=== PATIENT | male | born 1965 | race Caucasian/White ===

== ENCOUNTER → 2019-10-30 08:32 | Outpatient (CLI) | payer MEDICARE, SELFPAY ==
[2019-10-30 08:09] VITALS: BMI 39.4
[2019-10-30 12:16] LABS: Absolute Lymphocyte Count 1.94 X10^3/uL (0.83-4.51); Absolute Neutrophil Count 3.5 X10^3/uL (2.0-7.7); Basophil# 0.05 X10^3/uL; Basophil% 0.7 % (0-1); Eosinophil# 0.24 X10^3/uL; Eosinophils% 3.5 % (0-5); Hematocrit 40.7 % (40-54); Hemoglobin 13.7 g/dL (13.0-16.5); Lymphocyte # 1.94 X10^3/ul (4.0); Lymphocyte % 28.4 % (19-41); Mean Corp Hgb Conc 33.7 g/dL (32-36); Mean Corpuscular Hgb 30.2 pg (27.0-32.0); Mean Corpuscular Volume 89.6 fL (80-94); Mean Platelet Vol. 11.2 fl (6.2-12.0); Monocyte# 1.08 X10^3/uL; Monocyte% 15.8 % (0-10); NRBC Flagged by Analyzer 0 % (0-5); Neutrophil # 3.48 X10^3/uL (2.7-7.7); Neutrophil % 51.2 % (47-70); Platelet Count 213 K/mm3 (150-450); RBC Distribution Width SD 39.1 fl (35.1-43.9); Red Blood Count 4.54 M/mm3 (4.6-6.2); White Blood Count 6.8 K/mm3 (4.4-11.0)
[2019-10-30 12:43] LABS: ALB/GLOB Ratio 1.1 RATIO (0.9-2.4); AST(SGOT) 28 U/L (15-37); Alanine Aminotransfer ALT/SGPT 62 U/L (16-61); Albumin, Serum 3.9 g/dL (3.2-5.0); Alkaline Phosphatase 62 U/L (45-117); Anion Gap 6 (5-15); BUN 12 mg/dL (7-18); BUN/Creat Ratio 13.7 RATIO (10-20); Chloride 103 mmol/L (98-107); Cholesterol 156 mg/dL (200); Creatinine, Serum 0.88 mg/dL (0.70-1.30); EST Glomerular Filtration Rate 97 mL/min (>60); Est Glom Filt Rate - Afr Amer 117 mL/min (>60); Globulin 3.4 g/dL (2.2-4.2); Glucose 161 mg/dL (74-106); High Density Lipoprotein 23 mg/dL; PSA,Total - Annual Screen 0.25 ng/mL (0.00-4.00); Potassium 4.1 mmol/L (3.5-5.1); Protein, Total 7.3 g/dL (6.4-8.2); Sodium Level 137 mmol/L (136-145); Triglycerides 149 mg/dL; Very Low Density Lipoprotein 30 mg/dL (5-40)
[2019-10-30 13:17] LABS: Microalbumin,Random Urine 8.9 mg/L (NO RANGE EST.); Microalbumin:Creatinine Ratio 6.6 mg/g CRE (<30 mg/g CRE)
== END ==
LOC: BIMLAB 08:35
PROVIDERS: PCP Internal Medicine; Referring Provider Internal Medicine; Visit Provider Internal Medicine
DX: I10 Essential (primary) hypertension (principal); E78.5 Hyperlipidemia, unspecified; E11.9 Type 2 diabetes mellitus without complications; N40.0 Benign prostatic hyperplasia without lower urinary tract symptoms
CPT/HCPCS: 36415; 80053; 80061; 82043; 82570; 84153; 85025; G0103

== ENCOUNTER → 2019-11-03 13:14 | Outpatient (CLI) | payer MEDICARE, SELFPAY ==
[2019-10-30 08:09] VITALS: BMI 39.4
--- NOTE | 2019-11-03 13:17 | EKG12_ITS ---
Test Reason : Blood Pressure : / mmHG Vent. Rate : 068 BPM Atrial Rate : 068 BPM P-R Int : 154 ms QRS Dur : 096 ms QT Int : 382 ms P-R-T Axes : 056 065 048 degrees QTc Int : 406 ms Normal sinus rhythm Normal ECG Confirmed by NORIS QUINTANILLA ([id number]), film editor supervisor ROBBIE ESCALERA ([id number]) on 11/05/2019 9:02:21 AM Referred By: Maida Padilla Confirmed By:NORIS QUINTANILLA
== END ==
LOC: CVS 13:17
PROVIDERS: PCP Internal Medicine; Referring Provider Internal Medicine; Visit Provider Internal Medicine
DX: R07.9 Chest pain, unspecified (principal)
CPT/HCPCS: 93005

== ENCOUNTER 2020-01-26 10:34 | Day surgery (SDC) | payer MEDICARE, SELFPAY ==
[2020-01-01 13:08] VITALS: BMI 39.3
[2020-01-19 13:51] VITALS: BMI 39.4
[2020-01-26] VITALS (7 sets, daily range): BP systolic 106–145; BP diastolic 69–88; PULSE 71–98; RESP 16–18; TEMP 36.3–37.1; O2SAT 94–99; BMI 39.2
--- NOTE | 2020-01-26 05:47 | HP_ITS ---
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 Is patient in pain?: No Allergies No Known Allergies Allergy (Verified 01/19/20 13:32) Medications hydrochlorothiazide 25 mg tablet 25 mg PO DAILY #90 tab 10/30/19 [Rx Confirmed 01/19/20] lisinopril 40 mg tablet 40 mg PO DAILY #90 tab 10/30/19 [Rx Confirmed 01/19/20] glipizide 10 mg tablet 10 mg PO BID 90 Days #180 tab 11/20/19 [Rx Confirmed 01/19/20] dulaglutide 0.75 mg/0.5 mL subcutaneous pen injector 0.75 mg SC QWEEK 90 Days #6.5 ml 12/30/19 [Rx Confirmed 01/19/20] metronidazole 500 mg tablet 500 mg PO Q8H 5 Days #15 tab 01/13/20 [Rx Confirmed 01/19/20] polyethylene glycol 3350 17 gram/dose oral powder 17 g PO DAILY PRN #850 g 01/13/20 [Rx Confirmed 01/19/20] Subjective Details: Patient returns for a follow-up appointment for hemorrhoids. Patient has 1 more day of Flagyl. He notes the pain/discomfort has completely resolved. Patient has continued to use Tucks and rectal cream also. Patient is having normal, soft bowel movements. Objective Details: Anus- external hemorrhoids, non-swollen, non-ulcerated, non-tender. Assessment & Plan Problems 1. Hemorrhoids K64.9 2. Umbilical hernia K42.9 Plan - Hemorrhoids resolved - Patient was scheduled for a hernia surgery and had to cancel due to inflamed hemorrhoids - Patient may now proceed with hernia surgery - Complete Flagyl. Continue Tucks pads and rectal cream. - Continue Miralax - Discussed with patient that hernia surgery will constipate him and he will need to continue to Miralax. 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 Coding Level of Care Code Off vis,est,level 2 Diagnoses Hemorrhoids K64.9 Umbilical hernia K42.9
[2020-01-26] MEDS: Lactated Ringers 1,000 ML 100 ML IV (11:05)
--- NOTE | 2020-01-26 11:24 | PCM.HP.BLA ---
Problem List (1) Umbilical hernia Status: Acute Qualifiers: Obstruction and gangrene presence: without obstruction or gangrene Qualified Code(s): K42.9 - Umbilical hernia without obstruction or gangrene History and Physical Date of Admission: 01/26/20 Intake Vital Signs 01/01/20 Height 6 ft 01/01/20 Weight: 290 lb 01/01/20 BP 144/84 H 01/01/20 Blood Pressure Location Rt brachial 01/01/20 Position Sitting 01/01/20 Respiration 18 01/01/20 Pulse 87 01/01/20 Pulse Source Monitor 01/01/20 Temp 97.4 F L 01/01/20 Temp Source Temporal 01/01/20 Pulse Oximetry (%) 95 01/01/20 Oxygen Delivery Method room air Intake Visit Reasons: Umbilical Hernia Chief Complaint: umbilical hernia Pre Wave Assembler Required: No Accompanied by: Is patient in pain?: Yes Allergies No Known Allergies Allergy (Verified 01/01/20 13:10) Medications hydrochlorothiazide 25 mg tablet 25 mg PO DAILY #90 tab 10/30/19 [Rx Confirmed 01/01/20] lisinopril 40 mg tablet 40 mg PO DAILY #90 tab 10/30/19 [Rx Confirmed 01/01/20] glipizide 10 mg tablet 10 mg PO BID 90 Days #180 tab 11/20/19 [Rx Confirmed 01/01/20] blood sugar diagnostic See Rx Instructions .ROUTE .MEDSUPPLY #100 ea 12/29/19 [Rx Confirmed 01/01/20] blood-glucose meter See Rx Instructions .ROUTE .MEDSUPPLY #1 ea 12/29/19 [Rx Confirmed 01/01/20] citalopram 20 mg tablet 20 mg PO DAILY #90 tab 12/29/19 [Rx Confirmed 01/01/20] dulaglutide 0.75 mg/0.5 mL subcutaneous pen injector 0.75 mg SC QWEEK 90 Days #6.5 ml 12/30/19 [Rx Confirmed 01/01/20] [facility] Medical History (Updated 01/01/20 @ 13:08 by Haylie Lewis) Chronic headaches (Chronic) Vision problems (Acute) Hyperlipemia (Chronic) Hypertension (Chronic) Diabetes (Chronic) Back problem (Acute) Bone fracture (Acute) Umbilical hernia (Acute) Surgical History History of surgery on right wrist (Acute) history of right ankle fusion (Acute) Family History Other No pertinent family history Social History (Updated 01/01/20 @ 18:[address] Rajesh Mary MD) Smoking Status: Never smoker alcohol intake: never substance use type: does not use what type of physical activity do you participate in: walking, bicycling frequency: daily HPI HPI HPI: JAIME AMOR is a 54 M who presents to the office today for HPI HPI HPI: JAIME AMOR is a 54 M who presents to the office today for Umbilical hernia. The patient reports he has had this umbilical hernia for almost a year but for the last few months it has been growing and hurting worse especially when bending over. He is not having any nausea or vomiting or pain extending or radiating anywhere. He has no fevers or chills. No cough. ROS General General: No weight change, appetite, fatigue, colon cancer, breast cancer or weakness HEENT HEENT: No difficulty swallowing, eye injury, eye surgery, swollen glands or hoarseness Endo Endocrine: Yes diabetes mellitus; no thyroid disease, thyroid cancer, Hair loss, heat intolerance or cold intolerance Skin Skin: No rash or changing moles Breast Breast: No left breast lump, right breast lump, nipple discharge, breast pain, abnormal mammogram, abnormal US or breast enlargement Musc Musculoskeletal: Yes back problems and arthritis; no rheumatoid arthritis, gout or joint pain Cardio Cardiovascular: Yes high blood pressure; no murmur, pacemaker, heart disease, atrial fibrillation, heart attack, heart stent, palpitations, shortness of breat with exertion or chest pain Psych Psychiatric: Yes depression and anxiety; no hearing voices Resp Respiratory: No shortness of breath, No sleep apnea, No cough, No COPD, No asthma, No emphysema, No wheezing Gastro Gastrointestinal: Yes abdominal pain, No nausea or vomiting, No diarrhea, No constipation, No blood in stool, No acid reflux, No hemorrhoids, No ulcers, No gallbladder problem, No black,tarry stools Donald Hematologic: No blood thinners, No blood disorders, No bleeding, No anemia, No blood clots Neuro Neurologic: No system reviewed and no additional complaints, except as docu, No as per HPI, No abnormal walking, No abnormal hearing, No abnormal movements, No abnormal speech, No behavioral changes, No burning sensations, No confusion, No seizure-like activity, No unsteadiness, No dizziness, No localized weakness, No frequent falls, No headache(s), No lack of coordination, No loss of vision, No memory loss, No numbness, No other visual disturbances, No radiating pain, No restless legs, No sensory deficit, No fainting, No tingling, No tremor(s), No weakness, No other Exam Const General: cooperative Orientation: alert, oriented x3 HENMT Head: normal to inspection Ears: hearing grossly normal bilaterally Eyes General: appearance normal, both eyes and all related structures Visual Cramer: normal visual cramer by confrontation Neck Neck: normal visual inspection Chest Chest palpation & inspection: normal inspection of the chest Breast Palpation: No nipple discharge Resp Effort & Inspection: normal respiratory effort Auscultation: clear to auscultation bilaterally Cardio Rate: regular rate Rhythm: regular rhythm Heart Sounds: no murmurs GI Inspection: non-distended Palpation: soft, hernia umbilical, nontender Musc Cervical Spine: normal cervical lordosis, cervical ROM normal Skin General: no rashes or lesions noted Neuro General: alert, oriented x3 Cranial Nerves: CN's II-XI intact bilaterally Cognition: normal cognition Extrem General: normal to inspection, full ROM Psych Appearance: grossly normal Affect: normal affect Assessment & Plan Problems 1. Umbilical hernia without obstruction and without gangrene K42.9 Plan The patient has an umbilical hernia. It appears soft and partially reducible. I discussed hernia repair with the patient. I discussed repairing the hernia in an open fashion anteriorly with mesh. I discussed the risks of the surgery including with allergy to bleeding, infection, injury to underlying organs. I explained mesh placement and that it would decrease the risk of recurrence. The patient understands all the risks and is well to proceed with umbilical hernia repair with mesh. We discussed the current risks associated with COVID-19. While it is understood that there is a community spread of COVID-19, the risk of elmira COVID-19 while at [facility] ([facility]) is very low; however, the risk cannot be completely mitigated because of the community spread of the disease. We discussed in detail the risk of exposure to and/or potential harm posed by the COVID-19 virus with having a surgery/procedure at this time versus the risk of delaying the surgery/procedure. It is not possible to know either the risk of delaying the surgery or procedure or chance of getting an infection with perfect accuracy, but a joint decision was made to proceed at this time with the scheduled surgery/procedure as indicated on the consent form. Patient was notified that we will need to comply with any screening or testing [facility] wishes to perform or that surgery may be delayed for any positive results. Rajesh Mary MD Pager: [facility] [address] [place] [address] Office: . The patient had his first surgery canceled due to severe hemorrhoidal pain. The hemorrhoids have resolved the patient is here for umbilical hernia repair with mesh.
[2020-01-26 11:36] LABS: Bedside Glucose 120 mg/dL (70-110)
[2020-01-26] MEDS: Cefazolin 2 GM in 0.9% Normal Saline 100 ML IV (11:42)
[2020-01-26] MEDS: Bupiv/Epi 0.25% 30 ML Vial (12:00)
--- NOTE | 2020-01-26 12:43 | PCM.OPRPT ---
Problem List (1) Umbilical hernia Status: Acute Qualifiers: Obstruction and gangrene presence: without obstruction or gangrene Qualified Code(s): K42.9 - Umbilical hernia without obstruction or gangrene Report of Operation Date of Procedure: 01/26/20 Pre-Operative Diagnosis: Umbilical hernia Post-Operative Diagnosis: Same Surgery/Procedure Performed:: Umbilical hernia repair with mesh Description of Procedure: Patient was brought back the operating room and general anesthesia was induced. The abdomen was prepped and draped in usual sterile fashion. Next a curvilinear incision was marked superior to umbilicus and anesthetized. A scalpel was then used to make an incision and deepened to the hernia sac. The hernia sac was dissected free from the umbilical stalk and the umbilical stalk was retracted. Once the hernia sac was circumferentially dissected free it was reduced and a preperitoneal pocket was made. Next a small Ventralex ST mesh was placed into the preperitoneal space and sutured to the fascia using PDS sutures. The area was irrigated and suctioned dry and the fascia was closed in a transverse fashion using interrupted 0 PDS sutures. The umbilical stalk was then tacked to the fascia using 3-0 Vicryl suture. The skin was reapproximated using interrupted 3-0 Vicryl sutures in a deep dermal fashion and then a running 4-0 Monocryl suture. Glue was then applied and a dressing was applied. Patient tolerated procedure well and was brought to PACU in stable condition. Grafts/Implants Used: Small ventralex ST mesh - Admit VTE Documentation VTE Mechan Device Prophylaxis: SCD's
[2020-01-26 12:51] LABS: Bedside Glucose 97 mg/dL (70-110)
--- NOTE | 2020-01-26 12:52 | PCM.DC.HER ---
Discharge Diet: Light diet - advance as tolerated Discharge Activity: Return to Normal Activity, May Not Drive - for 2-3 days or while taking narcotic pain meds., May Shower - with the bandage in place 1-2 days after surgery. Lifting Restrictions: 20 pounds for 6 weeks. Additional Activity Instructions:: Climbing stairs is fine, walking is encouraged. Sitting in bed may be uncomfortable. Sitting up using your lateral muscles (sitting up sideways) is usually more comfortable. Do not drive, work heavy equipment of sign legal documents for 24 hours. Pain medications may cause nausea, you should typically eat light foods as you take your pain medications. Pain medications may also cause constipation. If you have difficulty with this, discuss with your doctor. Call your doctor if your incision/area has: Continuous Slow Oozing, Sudden Increased Bleeding, Increased Pain/ Swelling, Increased Redness, Foul Smelling Discharge Call your doctor if you observe: Fever of 101 or Higher Suture Line Care: Avoid Pulling/Pushing, Avoid Pinching/Bending Change Dressing in (Days):: 3 - Leave steri-strips for 1 week. May protect with a guaze bandaid. Cleanse incision/area with: Keep Dressing Clean & Dry Allergies/Adverse Reactions: Allergies No Known Allergies Allergy (Verified 01/26/20 10:37) Medications to take at Discharge hydrochlorothiazide 25 mg tablet 25 mg PO DAILY #90 tab 10/30/19 lisinopril 40 mg tablet 40 mg PO DAILY #90 tab 10/30/19 glipizide 10 mg tablet 10 mg PO BID 90 Days #180 tab 11/20/19 dulaglutide 0.75 mg/0.5 mL subcutaneous pen injector 0.75 mg SC QWEEK 90 Days #6.5 ml 12/30/19 polyethylene glycol 3350 17 gram/dose oral powder 17 g PO DAILY PRN #850 g 01/13/20 Docusate Sodium [Colace] 100 mg PO DAILY #20 cap 01/26/20 Oxycodone HCl/Acetaminophen [Percocet 5-325 mg Tablet] 1 - 2 tab PO Q6H PRN PRN 5 Days #20 tablet 01/26/20 The following prescriptions were given: Docusate Sodium [Colace] 100 mg PO DAILY #20 cap Transmission Status: Pending to [facility] Oxycodone HCl/Acetaminophen [Percocet 5-325 mg Tablet] 1 - 2 tab PO Q6H PRN PRN 5 Days #20 tablet PRN Reason: Pain Score 4-10/10 Transmission Status: Sent to [facility] Test Results: Test results from this visit will be discussed in further detail at your follow-up appointment, if applicable. Please Follow Up With: Rajesh Mary MD When: Please call to schedule 2 week follow up appointment. [phone]
[2020-01-26] MEDS: oxyCODONE 5 MG Tablet PO (13:39)
[2020-01-26] MEDS: Acetaminophen 325 MG Tablet PO (13:39)
== END 2020-01-26 14:30 | disposition home or self-care (01) ==
LOC: SDC 10:36 → AC 10:36
PROVIDERS: Anesthesiology; PCP Internal Medicine; Referring Provider Surgery; Visit Provider Surgery
PROC: (CPT 49585; principal; 2020-01-26 11:45)
DX: K42.9 Umbilical hernia without obstruction or gangrene (principal); I10 Essential (primary) hypertension; E11.9 Type 2 diabetes mellitus without complications; E78.5 Hyperlipidemia, unspecified; F41.9 Anxiety disorder, unspecified; Z79.84 Long term (current) use of oral hypoglycemic drugs; Z79.899 Other long term (current) drug therapy; Z20.828 Contact with and (suspected) exposure to other viral communicable diseases
CPT/HCPCS: 00750; 49585; 82962; 87426; 87635; C9803; J7120; C1781; J2405; U0003

== ENCOUNTER 2020-09-21 23:10 | Emergency (ER) | payer MEDICARE, SELFPAY ==
[2020-01-26 11:06] VITALS: BMI 39.2
[2020-09-21 23:13] VITALS: BP 139/89; PULSE 107; RESP 19; TEMP 36.2; O2SAT 95; BMI 42.1
[2020-09-21 23:15] VITALS: PULSE 113; RESP 14; RESP 26; O2SAT 98
[2020-09-21] MEDS: Succinylcholine Chloride 200 MG/10 ML Vial 100 MG IV (23:15)
[2020-09-21] MEDS: 0.9% Normal Saline 1,000 ML 1000 ML IV (23:15)
[2020-09-21] MEDS: Etomidate 20 MG/10 ML Vial IV (23:15)
--- NOTE | 2020-09-21 23:21 | RAD_ITS ---
STUDY: X-RAY CHEST REASON FOR EXAM: Male, 55 years old. Intubated TECHNIQUE: Single frontal view of the chest. COMPARISON: None. FINDINGS: ET tube terminates 5 cm above the natalya. Nasogastric tube terminates in the stomach with the side port at the GE junction. Low lung volumes. The lungs are clear and expanded. There is no demonstrated pleural abnormality. Normal size heart. Hilar and mediastinal shadows are normal. Soft tissues and bony structures are unremarkable. RAD/Chest 1 View (Portable) IMPRESSION: Tube placement as above. No acute findings. Electronically Signed: Jasmin Ni MD at 23:48 EDT Tel , Service support ,
--- NOTE | 2020-09-21 23:23 | CT_ITS ---
STUDY: CT CERVICAL SPINE WITHOUT CONTRAST REASON FOR EXAM: Male, 55 years old. trauma RADIATION DOSAGE (If Supplied By Facility): CTDIvol = ( 37.86 ) mGy, DLP = ( 3280.47 ) mGycm TECHNIQUE: High resolution transaxial imaging was performed without contrast material. Sagittal and coronal images were reconstructed. Individualized dose optimization techniques were used for this CT. COMPARISON: None FINDINGS: No significant prevertebral soft tissue swelling. Bilateral pulmonary infiltrates are identified. Multilevel degenerative changes of the cervical spine are present. Facet arthropathy. There is motion artifact. Cervical spine fracture is not excluded on this study. There is straightening of the normal cervical lordosis. Portions of the craniocervical junction and RIGHT lateral aspect of C1 were not included on this study however were seen on accompanying head CT. Partial visualization of an endotracheal and oral gastric tube. CT/Spine Cervical without Contras IMPRESSION: Multilevel degenerative changes of the cervical spine. There is motion artifact limiting evaluation. Cervical spine fracture is not excluded on this examination specifically at the level of C1 and C2 and the C2-C3 junction and at the level of C6 and C7.. Recommend repeat CT scan. Partial visualization of infiltrate within the visualized lungs. Electronically Signed: Terry Munoz MD at 1:20 EDT Tel , Service support ,
--- NOTE | 2020-09-21 23:23 | CT_ITS ---
STUDY: CT BRAIN WITHOUT CONTRAST REASON FOR EXAM: Male, 55 years old. trauma RADIATION DOSAGE (If Supplied By Facility): CTDIvol = ( 37.86 ) mGy, DLP = ( 3280.47 ) mGycm TECHNIQUE: Transaxial CT imaging of the brain was performed without administration of intravenous contrast material. Individualized dose optimization techniques were used for this CT. COMPARISON: No relevant priors. FINDINGS: Patient motion artifact and streak limits evaluation. Findings are within the limitations of the exam. Please see partial visualization endotracheal tube and oral gastric tube. Frontal scalp soft tissue swelling. Carotid and vertebral artery calcifications. Dedicated CT facial bones for facial bone findings. No depressed calvarial fracture identified. There is mild cerebral atrophy with widening of the extra-axial spaces and ventricular dilatation. There are areas of decreased attenuation within the white matter tracts of the supratentorial brain, consistent with microvascular disease changes. Normal basal ganglia and thalami. Normal brainstem. Posterior fossa midline CSF attenuating structure measuring 2.6 x 2.6 cm which may represent arachnoid cyst versus megacisterna magna. No large acute territorial infarct identified. No definitive intracranial hemorrhage is seen. Paranasal sinus disease. IMPRESSION: Motion limited study. Chronic involutional and white matter changes are present. No acute territorial infarct or intracranial hemorrhage is seen. If patient''s symptomology persists or there is continuing clinical concern MRI or follow-up CT scan can be performed. Frontal scalp soft tissue swelling. Facial bone fractures and injury as discussed on CT facial bones. Other findings as above. Electronically Signed: Terry Munoz MD at 1:13 EDT Tel , Service support , CT/Brain/Head without Contrast
--- NOTE | 2020-09-21 23:24 | CT_ITS ---
STUDY: CT ABDOMEN AND PELVIS WITH CONTRAST REASON FOR EXAM: Male, 55 years old. Trauma RADIATION DOSAGE (If Supplied By Facility): CTDIvol = ( 18.74 ) mGy, DLP = ( 1534.82 ) mGycm TECHNIQUE: Transaxial images were obtained from the dome of the diaphragm to the symphysis pubis without oral contrast. IV 100mL Isovue-370 was administered. Sagittal and coronal images were reconstructed. Individualized dose optimization techniques were used for this CT. COMPARISON: None. FINDINGS: Motion degraded study. Bilateral lower lobe atelectasis/infiltrates. Component of aspiration cannot be excluded. Coronary artery calcifications. Normal liver. Normal gallbladder and extrahepatic biliary system. Normal spleen. Normal pancreas. Normal bilateral adrenal glands. 2.1 cm low-attenuation structure RIGHT kidney likely representing a cyst. Normal left kidney. Oral gastric tube terminating within the stomach. Proximal port at the gastroesophageal junction and recommend slight advancement. There is no free air or fluid within the abdomen or pelvis identified. Normal small intestine. Normal colon. The appendix is visualized and appears normal. Normal abdominal aorta. Normal inferior vena cava. Normal retroperitoneum. Hoyos catheter is noted within the urinary bladder. Bladder wall is thickened however the bladder is decompressed. There are prostatic calcifications. Small fat-containing bilateral inguinal hernias. There are diffuse degenerative changes of the visualized lumbar spine. Severe neural foraminal narrowing L5-S1. There is no displaced fracture identified. Evaluation is limited by patient''s motion artifact. CT/Abdomen/Pelvis W IV Cont ONLY IMPRESSION: Motion degraded study. There is no displaced fracture identified. Limited evaluation for a nondisplaced fracture. Bilateral lower lobe atelectasis/infiltrate. A component of aspiration cannot be excluded. The oral gastric tube terminates within the stomach. However the proximal port is at the region of the gastroesophageal junction and recommend slight advancement. Degenerative changes of the spine. Severe neural foraminal narrowing L5-S1. No CT evidence for acute diverticulitis or appendicitis. Bladder wall is mildly thickened however the bladder is decompressed by Hoyos catheter. If there is concern for infectious process correlate with urinalysis. Other findings as discussed above. Electronically Signed: Terry Munoz MD at 1:33 EDT Tel , Service support ,
--- NOTE | 2020-09-21 23:24 | EKG12_ITS ---
Test Reason : DYSRHYTHMIA Blood Pressure : / mmHG Vent. Rate : 113 BPM Atrial Rate : 113 BPM P-R Int : 148 ms QRS Dur : 100 ms QT Int : 356 ms P-R-T Axes : 060 083 049 degrees QTc Int : 488 ms Sinus tachycardia Otherwise normal ECG Confirmed by SUNDAR CHEEK, GABY ([id number]), deputy editor in chief ROMANA SHERWOOD ([id number]) on 09/23/2020 9:26:20 AM Referred By: SILVIO Confirmed By:ANNA KWOK MD
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
--- NOTE | 2020-09-21 23:45 | CT_ITS ---
STUDY: CT FACIAL BONES WITHOUT CONTRAST REASON FOR EXAM: Male, 55 years old. TRAUMA RADIATION DOSAGE (If Supplied By Facility): CTDIvol = ( 37.86 ) mGy, DLP = ( 3280.47 ) mGycm TECHNIQUE: The patient was scanned in a multi detector CT scanner. Sagittal and coronal images were reconstructed. Individualized dose optimization techniques were used for this CT. COMPARISON: None. FINDINGS: Partial visualization of endotracheal tube and oral gastric tube. Motion degraded study. Paranasal sinus disease. Vascular calcifications. Nasal bone fractures. Frontal scalp soft tissue swelling/hematoma. Bilateral globes appear intact. There is no significant intraconal stranding identified. There is facial soft tissue swelling/hematoma involving the RIGHT face and periorbital region. Soft tissue swelling overlying the nose. CT/Sinus/Facial Bone IMPRESSION: Motion degraded study. Facial soft tissue injury as above. Nasal bone fractures. No additional facial bone fractures identified. Electronically Signed: Terry Munoz MD at 1:24 EDT Tel , Service support ,
[2020-09-21 23:54] LABS: Bacteria 0 SEEN /hpf (None Seen); Mucous, Urine 0 SEEN /hpf (<or=2+); Red Blood Cells-Urine 0 SEEN /hpf (0-5); Squamous Epithelial Cells - UA 0 SEEN /hpf (0-5)
[2020-09-22 00:02] LABS: Absolute Lymphocyte Count 7.69 X10^3/uL (0.83-4.51); Absolute Neutrophil Count 8.8 X10^3/uL (2.0-7.7); Basophil# 0.06 X10^3/uL; Basophil% 0.3 % (0-1); Color, Urine Yellow (Yellow); Eosinophil# 0.27 X10^3/uL; Eosinophils% 1.5 % (0-5); Glucose, Dipstick Normal (Normal); Hematocrit 44.9 % (40-54); Hemoglobin 15.2 g/dL (13.0-16.5); Ketone-Dipstick Negative (Negative); Leukocyte Esterase-Dipstick Negative /ul (Negative); Lymphocyte # 7.69 X10^3/ul (0.83-4.51); Lymphocyte % 41.8 % (19-41); Mean Corp Hgb Conc 33.9 g/dL (32-36); Mean Corpuscular Hgb 29.7 pg (27.0-32.0); Mean Corpuscular Volume 87.9 fL (80-94); Mean Platelet Vol. 10.8 fl (6.2-12.0); Monocyte% 7.6 % (0-10); NRBC Flagged by Analyzer 0 % (0-5); Neutrophil # 8.79 X10^3/uL (2.7-7.7); Neutrophil % 47.8 % (47-70); Nitrite-Dipstick Negative (Negative); Occult Blood-Urine Negative /ul (Negative); POSITIVE DIFFERENTIAL YES; POSITIVE MORPHOLOGY YES; Platelet Count 351 K/mm3 (150-450); Protein-Dipstick 15 mg/dl (Negative); RBC Distribution Width CV 12.9 % (11.6-14.6); Red Blood Count 5.11 M/mm3 (4.6-6.2); Urine Bilirubin Dipstick Negative (Negative); Urine Clarity Clear (Clear); Urine Urobilinogen Normal (Normal); White Blood Count 18.4 K/mm3 (4.4-11.0)
[2020-09-22 00:03] LABS: Differential Indicated SCAN CRITERIA MET
[2020-09-22] MEDS: Etomidate 20 MG/10 ML Vial IV (00:08)
[2020-09-22 00:09] LABS: ALB/GLOB Ratio 1.1 RATIO (0.9-2.4); AST(SGOT) 27 U/L (15-37); Alanine Aminotransfer ALT/SGPT 32 U/L (16-61); Albumin, Serum 3.9 g/dL (3.2-5.0); Alkaline Phosphatase 76 U/L (45-117); Anion Gap 14 (5-15); BUN 13 mg/dL (7-18); BUN/Creat Ratio 10.5 RATIO (10-20); Chloride 104 mmol/L (98-107); Creatinine, Serum 1.24 mg/dL (0.70-1.30); EST Glomerular Filtration Rate 65 mL/min (>60); Est Glom Filt Rate - Afr Amer 78 mL/min (>60); Estimated Creatinine Clearance 74.75 ml/min; Globulin 3.5 g/dL (2.2-4.2); Glucose 205 mg/dL (74-106); Potassium 3.5 mmol/L (3.5-5.1); Protein, Total 7.4 g/dL (6.4-8.2); Sodium Level 139 mmol/L (136-145)
[2020-09-22 00:10] VITALS: BP 129/89; PULSE 101; RESP 19; O2SAT 99
[2020-09-22] MEDS: Propofol 10MG/Ml 1,000 MG/100 ML Bottle 8.5 MG CONT INF (00:15)
[2020-09-22 00:18] LABS: Amphetamine Urine VISTA NEGATIVE (<1000 ng/mL); Barbiturate Urine VISTA NEGATIVE (< 200 ng/mL); Benzodiazepine Urine VISTA NEGATIVE (< 200 ng/mL); Cocaine Urine VISTA NEGATIVE (< 300 ng/mL); Ecstacy Urine VISTA NEGATIVE (< 500 ng/mL); Methadone Urine VISTA NEGATIVE (< 300 ng/mL); PCP Urine VISTA NEGATIVE (< 25 ng/mL); THC Urine VISTA NEGATIVE (< 50 ng/mL); Vista UDS pH Range 6
[2020-09-22 00:23] LABS: White Blood Cells 0-5 SEEN /hpf (0-5)
[2020-09-22 00:31] VITALS: BP 104/66; PULSE 91; RESP 21; O2SAT 100
[2020-09-22 00:54] VITALS: BP 96/54; PULSE 90; RESP 18; O2SAT 99
[2020-09-22 11:50] LABS: Bedside Glucose 227 mg/dL (70-110)
== END 2020-09-22 00:57 | disposition short-term general hospital (02) ==
PROVIDERS: Emergency Provider Emergency Medicine; PCP Internal Medicine
DX: S02.2XXA Fracture of nasal bones, initial encounter for closed fracture (principal); S01.21XA Laceration without foreign body of nose, initial encounter; Y04.0XXA Assault by unarmed brawl or fight, initial encounter; Y93.89 Activity, other specified; Y92.9 Unspecified place or not applicable; Y99.9 Unspecified external cause status; H11.31 Conjunctival hemorrhage, right eye; R40.4 Transient alteration of awareness; F10.129 Alcohol abuse with intoxication, unspecified; Y90.8 Blood alcohol level of 240 mg/100 ml or more; I10 Essential (primary) hypertension; E78.5 Hyperlipidemia, unspecified; E66.9 Obesity, unspecified; Z79.899 Other long term (current) drug therapy
CPT/HCPCS: 31500; 31720; 51702; 70450; 70486; 71045; 72125; 74177; 80053; 80307; 81001; 82077; 82962; 85025; 93005; 94002; 96374; 96375; 96376; 99251; 99285; J7030; Q9967; A4216; G0463; J0330

== ENCOUNTER 2020-09-28 17:31 | Emergency (ER) | payer MEDICARE, SELFPAY ==
[2020-09-28 17:32] VITALS: BP 140/84; PULSE 74; RESP 15; TEMP 36.4; O2SAT 97; BMI 38.0
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
== END 2020-09-28 19:56 | disposition home or self-care (01) ==
PROVIDERS: Emergency Provider Emergency Medicine; PCP Internal Medicine
DX: F39 Unspecified mood [affective] disorder (principal); F41.9 Anxiety disorder, unspecified; I10 Essential (primary) hypertension; E78.5 Hyperlipidemia, unspecified; E66.9 Obesity, unspecified; Z68.38 Body mass index [BMI] 38.0-38.9, adult; Z79.899 Other long term (current) drug therapy
CPT/HCPCS: 99282